=== PATIENT | female | born 1965 | race African-American/Black ===

== ENCOUNTER 2022-01-12 12:14 | Emergency (ER) | payer MEDICAID, SELFPAY ==
[2022-01-12] MEDS ORDERED: Fluorescein Opthalmic Strip ONE (12:52)
[2022-01-12] MEDS ORDERED: Tetracaine 0.5% PF 4 ML BOT ONE (12:52)
== END 2022-01-12 13:10 | disposition home or self-care (01) ==
LOC: CSHERS 12:14
DX: H10.31 Unspecified acute conjunctivitis, right eye (principal); I10 Essential (primary) hypertension; F17.200 Nicotine dependence, unspecified, uncomplicated
CPT/HCPCS: 99282